=== PATIENT | male | born 1955 | race Caucasian/White ===

== ENCOUNTER 2022-01-14 15:24 | Outpatient (CLI) | payer BC | END 2022-01-14 15:25 | disposition home or self-care (01) | LOC: RAD 15:24 | PROVIDERS: ATTEND Family Medicine | DX: M25.551 Pain in right hip (principal) ==

== ENCOUNTER 2022-02-17 17:00 | Outpatient (CLI) | payer BC | END 2022-02-17 17:01 | LOC: SLEEPLAB 17:00 | PROVIDERS: ATTEND Family Medicine | DX: G47.33 Obstructive sleep apnea (adult) (pediatric) (principal); R53.83 Other fatigue; R06.83 Snoring; E66.9 Obesity, unspecified; G47.10 Hypersomnia, unspecified; G47.52 REM sleep behavior disorder; I49.3 Ventricular premature depolarization; Z68.36 Body mass index [BMI] 36.0-36.9, adult | CPT/HCPCS: 95811 ==